=== PATIENT | female | born 1975 | race Caucasian/White ===

== ENCOUNTER 2016-06-15 08:21 | Day surgery (SDC) | payer BC, OTHER ==
[~2016-06-15] VITALS: Ht 160 cm; Wt 84.4 kg
[~2016-06-15 08:21] MED LIST: ALBUTEROL HFA60 DOSE IN; HYCET1 ML PO; OMEPRAZOLE40 MG PO; SUCRALFATE1 GM PO
[2016-06-15] MEDS ORDERED: HYCET1 ML PO (10:23)
--- NOTE | 2016-06-15 10:25 | Provider's Discharge Care Plan ---
Problem, Goal, Plan Problem List 1. S/P EXCISIOAL BX LIPOMA LEFT NECK
--- NOTE | 2016-06-15 10:25 | Provider's Discharge Care Plan ---
Problem, Goal, Plan Problem List 1. S/P EXCISIOAL BX LIPOMA LEFT NECK
--- NOTE | 2016-06-15 11:26 | OPERATIVE REPORT ---
DATE OF SURGERY: 06/15/2016 SURGEON: Duarte Salguero III, MD HEADER SET UP OPERATOR: None. PREOPERATIVE DIAGNOSES: 1. Lipoma, left neck POSTOPERATIVE DIAGNOSES: 1. Lipoma, left neck PROCEDURE PERFORMED: 1. Excisional biopsy of lipoma, left neck. ANESTHESIA: General Endotracheal. INDICATIONS: The patient is a 40-year-old female with a mass on the left side of her neck. Recent ultrasound shows that she has a 6 x 5 x 3 cm mass suggestive of lipoma, left anterolateral neck, uncomfortable whenever she rubs it. Always attributed it to migraines. SURGICAL FINDINGS: The patient had what appeared to be a subcutaneous lipoma extending beneath the lateral border of the sternocleidomastoid. It was not well- circumscribed and measuring only approximately 5 x perhaps 2 x 1 cm in size. SURGICAL TECHNIQUE: The patient was brought to the operating room and placed in the dorsal supine position where she was administered general endotracheal anesthesia by the anesthesiology department. After proper anesthesia had taken effect, the patient 's left neck was prepped using Betadine and draped in a sterile fashion. The site previously identified in the preoperative holding area was once again identified, infiltrated using local anesthetic. Transverse incision was made and carried down through skin and subcutaneous tissue. The palpable subcutaneous tissue was excised using sharp and blunt dissection. Palpation of the wound afterwards did not appreciate any further masses. Hemostasis having been achieved, the wound was irrigated and closed with 4-0 Polysorb continuous suture. Steri-Strips placed on the wound. A sterile pressure occlusive dressing was placed over the site. The patient tolerated the procedure well, was extubated and transferred to the recovery room in stable condition. There were no intraoperative or anesthetic complications.
[2016-06-15 12:28] VITALS: BP 122/75
== END 2016-06-15 12:35 | disposition home or self-care (01) ==
LOC: OR SRH 08:21 → SCU SRH 08:22 → OR SRH 09:00
PROVIDERS: Specialist
PROC: 0JB40ZX Excision of Right Neck Subcutaneous Tissue and Fascia, Open Approach, Diagnostic (ICD-10-PCS; principal; 2016-06-15 10:15)
DX: D17.0 Benign lipomatous neoplasm of skin and subcutaneous tissue of head, face and neck (principal); J45.909 Unspecified asthma, uncomplicated
CPT/HCPCS: 29229; 29240; 50004; 60001; 70002; 80102; 80212

== ENCOUNTER 2016-06-19 17:25 | Emergency (ER) | payer BC, OTHER ==
--- NOTE | 2016-06-19 19:12 | ED CLINICAL REPORT ---
Clinical Report - Physicians/Mid Levels [facility] [address] [place] [address] 06/19/2016 17:26 Patient: CYDNEY BENAVIDES Time Seen: 18:51; upon arrival, initial patient contact, initial documentation, patient care assumed. Arrived- By private vehicle. Historian- patient. HISTORY OF PRESENT ILLNESS Chief Complaint: SKIN RASH. This started about 3 - 4 days ago and is still present and worsening. It is described as itchy and burning. It has been located on the neck. A possible cause has been identified. (started near surgical site and steri strips, spreading up neck into jaw and chin and down chest). Similar symptoms previously: Once, milder. ( had abdominal surgery, and they did same thing with steri strips, and she had same type of rash). Recent medical care: The patient was seen recently in the office. ( had surgery on per Dr Hannon, had skin growth removed, and it was closed with steri strips, f/u appt sun, rash started sometime on sunday). REVIEW OF SYSTEMS No fever or difficulty breathing. All systems otherwise negative, except as recorded above. PAST HISTORY See nurses notes. PROBLEMS: Lymphadenitis. Hernia. Chest Pain of GI Origin. Gastroesophageal Reflux Disease. Abdominal Pain. --17:47 Debbie Malone R.N. ADDITIONAL SURGERIES: Foot. Hand. Roger Fundoplasty. Tubal Ligation. --17:47 Debbie Malone, R.N. Lymphoma removal. --17:48 Debbie Malone R.N. SOCIAL HISTORY Never smoker. Occasional alcohol use. No drug use. No recent travel. Is a local resident. FAMILY HISTORY Negative. ADDITIONAL NOTES The nursing notes have been reviewed with agreement regarding the chief complaint, HPI, ROS, PMH and patient medications and allergies. PHYSICAL EXAM Vital Signs: 06/19/2016 17:44 BP: 124/83. HR: 76. RR: 15. O2 saturation: 100%. Temp: 98.3 F. Pain level now: 7/10. Have been reviewed as normal and appear to be correct. Appearance: Alert. Oriented X3. No acute distress. Eyes: Pupils equal, round and reactive to light. Conjunctivae and eyelids normal. ENT: Nose normal. Neck: Neck supple. Respiratory: No respiratory distress. Skin: Skin warm and dry. Abnormal skin color. Rash present. Normal skin turgor. Moderate, well-demarcated, erythematous, macular, raised, weeping skin rash with an erythematous base on the face, neck and chest- steri strips removed, obvious epidermal stripping from bandage changes, surgical site clear, wound edges approximated well without any s/s of infection. Extremities: Normal external inspection. Extremities nontender. Neuro: Oriented X 3. No motor deficit. No sensory deficit. PROGRESS AND PROCEDURES Patient counseled in person regarding the patient's stable condition and diagnosis. Differential Diagnosis: Other possible considerations: allergic reaction, dermatitis, epidermal stripping, cellulitis, post op infection, shingles. Above considerations are based on history and physical exam. Differential diagnosis was discussed with patient. Disposition: Discharged home in good and improved condition (19:12). Condition: good and stable. CLINICAL IMPRESSION Moderate irritative contact dermatitis from adhesive. INSTRUCTIONS Warnings: GENERAL WARNINGS: Return or contact your physician immediately if your condition worsens or changes unexpectedly, if not improving as expected, or if other problems arise. Specifically return if problem worsens. Prescription Medications: Bella 180 mg tablets: take 1 orally daily for 10 days. Dispense ten (10). No refills. Prednisone 20 mg: take 3 orally every day for 5 days. Dispense fifteen (15). No refills. Keflex 500 mg: take 1 capsule orally every 12 hours for 10 days. No refill. Pepcid 40 mg RPD: take 1 orally at bedtime for 10 days. Dispense ten (10). No refills. Understanding of the discharge instructions verbalized by patient. Follow-up with: Dimas Salguero MD, General Surgeon, , [facility], [address] [place] [address] Follow up in two days as scheduled even if well. Summary of care provided to patient. (Electronically signed by Lakia Ellis A.R.N.P. 06/19/2016 22:17)
--- NOTE | 2016-06-19 19:12 | ED NURSING NOTES ---
Clinical Report - Nurses [facility] [address] [place] [address] 06/19/2016 17:26 Patient: CYDNEY BENAVIDES TRIAGE Triage time 17:45. Acuity: LEVEL 4. Chief Complaint: SKIN RASH. 17:50 06/19/16. Alert. No acute distress. SEPSIS SCREEN: Sepsis Screen. Negative (no infection suspected/documented). MICHELET COMA SCORE: Michelet Coma Scale: 15- eyes open spontaneously (4); best verbal response- oriented x 4 (5); best motor response- obeys commands (6). --17:50 Debbie Malone R.N. 17:44 06/19/16. BP: 124/83. HR: 76. RR: 15. O2 saturation: 100%. Temp: 98.3 F. Pain level now: 10/09. --17:50 Debbie Malone R.N. Weight: 81.6 kg. Height/Length: 63 inches. BMI: 31.9. --17:50 Debbie Malone R.N. Medications Albuterol Sulfate Inhalation, as needed. --17:47 Debbie Malone R.N. Allergies Sulfa Antibiotics. --17:47 Debbie Malone R.N. History Arrived by private vehicle. Historian: patient. Primary physician (Dr. Genao). Reported as located on the neck. Onset. (Sunday). It is described as itchy and burning. ( pt had lymphoma removal surgery on L side of neck on .). She has had muscle aches. No difficulty breathing or weakness. Treatment [employer]: Took ibuprofen. PAST MEDICAL HX: Immunizations: up-to-date. Last normal menstrual period- 8 years ago. Denies current . SOCIAL HX: Never smoker. Occasional alcohol use. No drug use. FALL RISK ASSESSMENT: Fall risk assessment completed. No fall risk identified. NUTRITIONAL RISK ASSESSMENT: The nutritional risk assessment revealed no deficiencies. FUNCTIONAL ASSESSMENT: Functional assessment: no impairments noted. LEARNING NEEDS ASSESSMENT: The learning needs assessment revealed no barriers. SKIN INTEGRITY ASSESSMENT: Skin integrity risk assessment completed. No skin integrity risk identified. --17:50 Debbie Malone R.N. PROBLEMS: Lymphadenitis. Hernia. Chest Pain of GI Origin. Gastroesophageal Reflux Disease. Abdominal Pain. --17:47 Debbie Malone R.N. ADDITIONAL SURGERIES: Foot. Hand. Roger Fundoplasty. Tubal Ligation. --17:47 Debbie Malone R.N. Lymphoma removal. --17:48 Debbie Malone R.N. Interventions ID band on patient. To treatment room. --17:50 Debbie Malone R.N. PHYSICAL ASSESSMENT 17:54 06/19/16. Ambulatory to room. GENERAL / NEURO / PSYCH: Alert. The patient does not appear to be in acute distress. Oriented X 4. HEENT: Mucous membranes are pink. RESPIRATORY: Respirations not labored. CVS: Capillary refill less than 2 seconds. Pulses within normal limits. SKIN: Skin is intact, warm and dry. Well-demarcated, erythematous, tender, warm, blanching skin rash on the neck- pt states she has had this rash before, after a prior surgery. pt reports a possible allergy to the tape used on the surgical incision. pt states she came in today "because I can't sleep and it's much worse than last time.". No crusting skin rash. --17:54 Debbie Malone R.N. NURSING PROGRESS NOTES 17:55 06/19/16. Two patient identifiers checked. Call light placed in reach. Side rails up x 1. Bed placed in lowest position. Brakes of bed on. Patient ready for evaluation- chart flagged and notification provided. --17:55 Debbie Malone R.N. 18:47 06/19/16. Patient informed about reason for wait and about plan of care. --18:47 Debbie Malone R.N. 18:53 06/19/16. ( VLADIMIR Dorman at bedside.). --18:53 Debbie Malone R.N. 19:11 06/19/16. Care transferred and report given (to LINDSAY Barron). --19:11 Debbie Malone R.N. Care transferred and report received. --19:11 Beatrice Ibarra R.N. 19:16 06/19/2016 Pepcid (Famotidine) PO Tablets 40 mg given. Allergies verified and confirmed 5 rights. --19:17 Beatrice Ibarra R.N. 19:16 06/19/2016 Prednisone PO Tablets 60 mg given. Allergies verified and confirmed 5 rights. --19:17 Beatrice Ibarra R.N. Applied clean bulky dressing consisting of 4x4 gauze. Secured with kerlix. --19:49 Mishel Barnes. DISPOSITION / DISCHARGE 20:00. Condition at departure: improved and stable. No learning barriers present. Discharge instructions provided and reviewed with the patient. Reviewed medication(s) side effects, precautions, dosing and course information. Prescription(s) given to the patient. Patient verbalized understanding. Written instructions provided in Frisian. The patient was discharged home. She left the Emergency Department ambulatory and via private vehicle. Patient driving. --21:00 Beatrice Ibarra R.N. 20:00 06/19/16. BP: 121/84. HR: 73. RR: 15. O2 saturation: 98% on room air. Temp: deferred. Huerta-Lopez pain scale: 2/10. --21:00 Baetrice Ibarra R.N. Locked/Released at 06/19/2016 21:00 by Beatrice Ibarra R.N.
--- NOTE | 2016-06-19 19:12 | ED ORDER SUMMARY ---
..... Patient: CYDNEY BENAVIDES OrderSheet [facility] VisitID: [id number] [address] [place] [address] 40y, F Registration Date/Time: 06/19/2016 ORDER SHEET Weight: 81.6 kg Allergies: Sulfa Antibiotics GENERAL ORDERS: Dress Wounds (wrap kerlix around neck and cover wound, NO tape) (19:13 06/19/2016 HBivens A.R.N.P.) (19:54 LMuller) MEDICATION ORDERS: Benadryl PO 50 mg (NOW) (19:10 06/19/2016 HBivens A.R.N.P.) (Ack 19:12 RCollier R.N.) (Cancelled: Patient Refusal- will take own medication at home19:19 RCollier R.N.) Pepcid PO 40 mg (NOW) (19:10 06/19/2016 HBivens A.R.N.P.) (Ack 19:12 RCollier R.N.) (19:17 RCollier R.N.) Prednisone PO 60 mg (NOW) (19:11 06/19/2016 HBivens A.R.N.P.) (Ack 19:12 RCollier R.N.) (19:17 RCollier R.N.) IV FLUIDS: ORDER SHEET NOTES: [Electronically signed by Beatrice Ibarra R.N. (21:00 06/19/2016)] [Electronically signed by Lakia Ellis A.R.N.P. (22:17 06/19/2016)] [Electronically locked/signed by Beatrice Ibarra R.N. (21:00 06/19/2016)]
--- NOTE | 2016-06-19 19:12 | ED CLINICAL REPORT ---
Clinical Report - Physicians/Mid Levels [facility] [address] [place] [address] 06/19/2016 17:26 Patient: CYDNEY BENAVIDES Time Seen: 18:51; upon arrival, initial patient contact, initial documentation, patient care assumed. Arrived- By private vehicle. Historian- patient. HISTORY OF PRESENT ILLNESS Chief Complaint: SKIN RASH. This started about 3 - 4 days ago and is still present and worsening. It is described as itchy and burning. It has been located on the neck. A possible cause has been identified. (started near surgical site and steri strips, spreading up neck into jaw and chin and down chest). Similar symptoms previously: Once, milder. ( had abdominal surgery, and they did same thing with steri strips, and she had same type of rash). Recent medical care: The patient was seen recently in the office. ( had surgery on per Dr Hannon, had skin growth removed, and it was closed with steri strips, f/u appt sun, rash started sometime on sunday). REVIEW OF SYSTEMS No fever or difficulty breathing. All systems otherwise negative, except as recorded above. PAST HISTORY See nurses notes. PROBLEMS: Lymphadenitis. Hernia. Chest Pain of GI Origin. Gastroesophageal Reflux Disease. Abdominal Pain. --17:47 Debbie Malone R.N. ADDITIONAL SURGERIES: Foot. Hand. Roger Fundoplasty. Tubal Ligation. --17:47 Debbie Malone, R.N. Lymphoma removal. --17:48 Debbie Malone R.N. SOCIAL HISTORY Never smoker. Occasional alcohol use. No drug use. No recent travel. Is a local resident. FAMILY HISTORY Negative. ADDITIONAL NOTES The nursing notes have been reviewed with agreement regarding the chief complaint, HPI, ROS, PMH and patient medications and allergies. PHYSICAL EXAM Vital Signs: 06/19/2016 17:44 BP: 124/83. HR: 76. RR: 15. O2 saturation: 100%. Temp: 98.3 F. Pain level now: 7/10. Have been reviewed as normal and appear to be correct. Appearance: Alert. Oriented X3. No acute distress. Eyes: Pupils equal, round and reactive to light. Conjunctivae and eyelids normal. ENT: Nose normal. Neck: Neck supple. Respiratory: No respiratory distress. Skin: Skin warm and dry. Abnormal skin color. Rash present. Normal skin turgor. Moderate, well-demarcated, erythematous, macular, raised, weeping skin rash with an erythematous base on the face, neck and chest- steri strips removed, obvious epidermal stripping from bandage changes, surgical site clear, wound edges approximated well without any s/s of infection. Extremities: Normal external inspection. Extremities nontender. Neuro: Oriented X 3. No motor deficit. No sensory deficit. PROGRESS AND PROCEDURES Patient counseled in person regarding the patient's stable condition and diagnosis. Differential Diagnosis: Other possible considerations: allergic reaction, dermatitis, epidermal stripping, cellulitis, post op infection, shingles. Above considerations are based on history and physical exam. Differential diagnosis was discussed with patient. Disposition: Discharged home in good and improved condition (19:12). Condition: good and stable. CLINICAL IMPRESSION Moderate irritative contact dermatitis from adhesive. INSTRUCTIONS Warnings: GENERAL WARNINGS: Return or contact your physician immediately if your condition worsens or changes unexpectedly, if not improving as expected, or if other problems arise. Specifically return if problem worsens. Prescription Medications: Bella 180 mg tablets: take 1 orally daily for 10 days. Dispense ten (10). No refills. Prednisone 20 mg: take 3 orally every day for 5 days. Dispense fifteen (15). No refills. Keflex 500 mg: take 1 capsule orally every 12 hours for 10 days. No refill. Pepcid 40 mg RPD: take 1 orally at bedtime for 10 days. Dispense ten (10). No refills. Understanding of the discharge instructions verbalized by patient. Follow-up with: Dimas Salguero MD, General Surgeon, , [facility], [address] [place] [address] Follow up in two days as scheduled even if well. Summary of care provided to patient. (Electronically signed by Lakia Ellis A.R.N.P. 06/19/2016 22:17)
--- NOTE | 2016-06-19 19:12 | ED ORDER SUMMARY ---
..... Patient: CYDNEY BENAVIDES OrderSheet [facility] VisitID: [id number] [address] [place] [address] 40y, F Registration Date/Time: 06/19/2016 ORDER SHEET Weight: 81.6 kg Allergies: Sulfa Antibiotics GENERAL ORDERS: Dress Wounds (wrap kerlix around neck and cover wound, NO tape) (19:13 06/19/2016 HBivens A.R.N.P.) (19:54 LMuller) MEDICATION ORDERS: Benadryl PO 50 mg (NOW) (19:10 06/19/2016 HBivens A.R.N.P.) (Ack 19:12 RCollier R.N.) (Cancelled: Patient Refusal- will take own medication at home19:19 RCollier R.N.) Pepcid PO 40 mg (NOW) (19:10 06/19/2016 HBivens A.R.N.P.) (Ack 19:12 RCollier R.N.) (19:17 RCollier R.N.) Prednisone PO 60 mg (NOW) (19:11 06/19/2016 HBivens A.R.N.P.) (Ack 19:12 RCollier R.N.) (19:17 RCollier R.N.) IV FLUIDS: ORDER SHEET NOTES: [Electronically signed by Beatrice Ibarra R.N. (21:00 06/19/2016)] [Electronically signed by Lakia Ellis A.R.N.P. (22:17 06/19/2016)] [Electronically locked/signed by Beatrice Ibarra R.N. (21:00 06/19/2016)]
--- NOTE | 2016-06-19 22:17 | ED MAR SUMMARY ---
..... Medication Administration Record [facility] [address] [place] [address] Patient: CYDNEY BENAVIDES Visit ID: [id number] 40y, F Weight: 81.6 kg Height/Length: 63 in BMI: 31.9 ALLERGIES: Sulfa Antibiotics Given 19:06/19/2016 Beatrice Ibarra, R.N. Medication Administered: PEPCID [PO] (FAMOTIDINE), Dose: 40 mg Tablets PO. Medication Ordered: Pepcid PO 40 mg (NOW). Given 19:06/19/2016 Beatrice Ibarra, R.N. Medication Administered: PREDNISONE [PO], Dose: 60 mg Tablets PO. Medication Ordered: Prednisone PO 60 mg (NOW).
--- NOTE | 2016-06-19 22:17 | ED DISCHARGE INSTRUCTIONS ---
Patient: CYDNEY BENAVIDES General Instructions [facility] VisitID: [id number] [place] [address] 40y, F Registration Date/Time: 06/19/2016 Moderate irritative contact dermatitis from adhesive. INSTRUCTIONS Warnings: GENERAL WARNINGS: Return or contact your physician immediately if your condition worsens or changes unexpectedly, if not improving as expected, or if other problems arise. Specifically return if problem worsens. Prescription Medications: Bella 180 mg tablets: take 1 orally daily for 10 days. Dispense ten (10). No refills. Prednisone 20 mg: take 3 orally every day for 5 days. Dispense fifteen (15). No refills. Keflex 500 mg: take 1 capsule orally every 12 hours for 10 days. No refill. Pepcid 40 mg RPD: take 1 orally at bedtime for 10 days. Dispense ten (10). No refills. Understanding of the discharge instructions verbalized by patient. Follow-up with: Dimas Salguero MD, General Surgeon, , [facility], [address] [place] [address] Follow up in two days as scheduled even if well. Summary of care provided to patient. ADDITIONAL INFORMATION Dermatitis (Non-Specific) Dermatitis is an inflammation of the skin. The exact cause of your rash is not certain. However, this rash does not appear to be an infection or contagious illness. Taking care of the rash at home should help relieve your symptoms. Home Care: Keep the areas of rash clean by washing it daily. This also helps to keep the skin moist. Use a neutral pH soap such as Dove or Lever 2000. Apply a moisturizing lotion after bathing to prevent dry skin. Avoid skin irritants (wool or silk clothing, grease, oils, some medicines, harsh soaps, and detergents). Wear absorbent, soft fabrics next to the skin rather than rough or scratchy materials. Unless another medicine was prescribed, you may use Hydrocortisone cream (which you can get without a prescription) to reduce the inflammation. Follow Up: Make an appointment with your doctor in the next 1 to 2 weeks if your symptoms do not improve with the above measures. Get Prompt Medical Attention if any of the following occur: Increasing area of redness or pain in the skin Yellow crusts or drainage from the rash Joint pain New rash that appears in other areas of the body Fever of 100.4F (38C) or higher, or as directed by your healthcare provider Fexofenadine Hydrochloride Oral tablet What is this medicine? FEXOFENADINE (fex oh FEN a justina) is an antihistamine. This medicine is used to treat or prevent symptoms of allergies. It is also used to help reduce itchy skin rash and hives. How should I use this medicine? Take this medicine by mouth with a full glass of water. Follow the directions on the prescription label. You may take this medicine with food or on an empty stomach. Take your medicine at regular intervals. Do not take it more often than directed. You may need to take this medicine for several days before your symptoms improve. Talk to your analysis consultant regarding the use of this medicine in children. While this drug may be prescribed for children as young as 6 years old for selected conditions, precautions do apply. What side effects may I notice from receiving this medicine? Side effects that you should report to your doctor or health rn care manager as soon as possible: allergic reactions like skin rash, itching or hives, swelling of the face, lips, or tongue breathing problems chest pain fast heartbeat infection or fever Side effects that usually do not require medical attention (report to your doctor or health rn care manager if they continue or are bothersome): cough drowsiness dry or irritated nose, mouth, or throat headache menstrual changes pain stomach upset, nausea What may interact with this medicine? antacids erythromycin grapefruit, apple, or orange juice ketoconazole magnesium-containing products What if I miss a dose? If you miss a dose, take it as soon as you can. If it is almost time for your next dose, take only that dose. Do not take double or extra doses. Where should I keep my medicine? Keep out of the reach of children. Store at room temperature between 20 and 25 degrees C (68 and 77degrees F). Protect from moisture. Throw away any unused medicine after the expiration date. What should I tell my health care provider before I take this medicine? They need to know if you have any of these conditions: kidney disease an unusual or allergic reaction to fexofenadine, terfenadine, other medicines, foods, dyes, or preservatives or trying to get breast-feeding What should I watch for while using this medicine? Visit your doctor or health rn care manager for regular checks on your health. Tell your doctor or healthcare professional if your symptoms do not start to get better or if they get worse. Prednisone Oral tablet What is this medicine? PREDNISONE (PRED ni sone) is a corticosteroid. It is commonly used to treat inflammation of the skin, joints, lungs, and other organs. Common conditions treated include asthma, allergies, and arthritis. It is also used for other conditions, such as blood disorders and diseases of the adrenal glands. How should I use this medicine? Take this medicine by mouth with a glass of water. Follow the directions on the prescription label. Take this medicine with food. If you are taking this medicine once a day, take it in the morning. Do not take more medicine than you are told to take. Do not suddenly stop taking your medicine because you may develop a severe reaction. Your doctor will tell you how much medicine to take. If your doctor wants you to stop the medicine, the dose may be slowly lowered over time to avoid any side effects. Talk to your analysis consultant regarding the use of this medicine in children. Special care may be needed. What side effects may I notice from receiving this medicine? Side effects that you should report to your doctor or health rn care manager as soon as possible: allergic reactions like skin rash, itching or hives, swelling of the face, lips, or tongue changes in emotions or moods changes in vision depressed mood eye pain fever or chills, cough, sore throat, pain or difficulty passing urine increased thirst swelling of ankles, feet Side effects that usually do not require medical attention (report to your doctor or health rn care manager if they continue or are bothersome): confusion, excitement, restlessness headache nausea, vomiting skin problems, acne, thin and shiny skin trouble sleeping weight gain What may interact with this medicine? Do not take this medicine with any of the following medications: metyrapone mifepristone This medicine may also interact with the following medications: aminoglutethimide amphotericin B aspirin and aspirin-like medicines barbiturates certain medicines for diabetes, like glipizide or glyburide cholestyramine cholinesterase inhibitors cyclosporine digoxin diuretics ephedrine female hormones, like estrogens and control pills isoniazid ketoconazole NSAIDS, medicines for pain and inflammation, like ibuprofen or naproxen phenytoin rifampin toxoids vaccines warfarin What if I miss a dose? If you miss a dose, take it as soon as you can. If it is almost time for your next dose, talk to your doctor or health rn care manager. You may need to miss a dose or take an extra dose. Do not take double or extra doses without advice. Where should I keep my medicine? Keep out of the reach of children. Store at room temperature between 15 and 30 degrees C (59 and 86 degrees F). Protect from light. Keep container tightly closed. Throw away any unused medicine after the expiration date. What should I tell my health care provider before I take this medicine? They need to know if you have any of these conditions: Nneka's syndrome diabetes glaucoma heart disease high blood pressure infection (especially a virus infection such as chickenpox, cold sores, or herpes) kidney disease liver disease mental illness myasthenia gravis osteoporosis seizures stomach or intestine problems thyroid disease an unusual or allergic reaction to lactose, prednisone, other medicines, foods, dyes, or preservatives or trying to get breast-feeding What should I watch for while using this medicine? Visit your doctor or health rn care manager for regular checks on your progress. If you are taking this medicine over a prolonged period, carry an identification card with your name and address, the type and dose of your medicine, and your doctor's name and address. This medicine may increase your risk of getting an infection. Tell your doctor or health rn care manager if you are around anyone with measles or chickenpox, or if you develop sores or blisters that do not heal properly. If you are going to have surgery, tell your doctor or health rn care manager that you have taken this medicine within the last twelve months. Ask your doctor or health rn care manager about your diet. You may need to lower the amount of salt you eat. This medicine may affect blood sugar levels. If you have diabetes, check with your doctor or health rn care manager before you change your diet or the dose of your diabetic medicine. Cephalexin Monohydrate Oral tablet What is this medicine? CEPHALEXIN (sef a LAURIE in) is a cephalosporin antibiotic. It is used to treat certain kinds of bacterial infections It will not work for colds, flu, or other viral infections. How should I use this medicine? Take this medicine by mouth with a full glass of water. Follow the directions on the prescription label. This medicine can be taken with or without food. Take your medicine at regular intervals. Do not take your medicine more often than directed. Take all of your medicine as directed even if you think you are better. Do not skip doses or stop your medicine early. Talk to your analysis consultant regarding the use of this medicine in children. While this drug may be prescribed for selected conditions, precautions do apply. What side effects may I notice from receiving this medicine? Side effects that you should report to your doctor or health rn care manager as soon as possible: allergic reactions like skin rash, itching or hives, swelling of the face, lips, or tongue breathing problems pain or trouble passing urine redness, blistering, peeling or loosening of the skin, including inside the mouth severe or watery diarrhea unusually weak or tired yellowing of the eyes, skin Side effects that usually do not require medical attention (report to your doctor or health rn care manager if they continue or are bothersome): gas or heartburn genital or anal irritation headache joint or muscle pain nausea, vomiting What may interact with this medicine? probenecid some other antibiotics What if I miss a dose? If you miss a dose, take it as soon as you can. If it is almost time for your next dose, take only that dose. Do not take double or extra doses. There should be at least 4 to 6 hours between doses. Where should I keep my medicine? Keep out of the reach of children. Store at room temperature between 59 and 86 degrees F (15 and 30 degrees C). Throw away any unused medicine after the expiration date. What should I tell my health care provider before I take this medicine? They need to know if you have any of these conditions: kidney disease stomach or intestine problems, especially colitis an unusual or allergic reaction to cephalexin, other cephalosporins, penicillins, other antibiotics, medicines, foods, dyes or preservatives or trying to get breast-feeding What should I watch for while using this medicine? Tell your doctor or health rn care manager if your symptoms do not begin to improve in a few days. Do not treat diarrhea with over the counter products. Contact your doctor if you have diarrhea that lasts more than 2 days or if it is severe and watery. If you have diabetes, you may get a false-positive result for sugar in your urine. Check with your doctor or health rn care manager. Famotidine Oral tablet What is this medicine? FAMOTIDINE (hunter patinoen) is a type of antihistamine that blocks the release of stomach acid. It is used to treat stomach or intestinal ulcers. It can also relieve heartburn from acid reflux. How should I use this medicine? Take this medicine by mouth with a glass of water. Follow the directions on the prescription label. If you only take this medicine once a day, take it at bedtime. Take your doses at regular intervals. Do not take your medicine more often than directed. Talk to your analysis consultant regarding the use of this medicine in children. Special care may be needed. What side effects may I notice from receiving this medicine? Side effects that you should report to your doctor or health rn care manager as soon as possible: agitation, nervousness confusion hallucinations skin rash, itching Side effects that usually do not require medical attention (report to your doctor or health rn care manager if they continue or are bothersome): constipation diarrhea dizziness headache What may interact with this medicine? delavirdine itraconazole ketoconazole What if I miss a dose? If you miss a dose, take it as soon as you can. If it is almost time for your next dose, take only that dose. Do not take double or extra doses. Where should I keep my medicine? Keep out of the reach of children. Store at room temperature between 15 and 30 degrees C (59 and 86 degrees F). Do not freeze. Throw away any unused medicine after the expiration date. What should I tell my health care provider before I take this medicine? They need to know if you have any of these conditions: kidney or liver disease trouble swallowing an unusual or allergic reaction to famotidine, other medicines, foods, dyes, or preservatives or trying to get breast-feeding What should I watch for while using this medicine? Tell your doctor or health rn care manager if your condition does not start to get better or if it gets worse. Finish the full course of tablets prescribed, even if you feel better. Do not take with aspirin, ibuprofen or other antiinflammatory medicines. These can make your condition worse. Do not smoke cigarettes or drink alcohol. These cause irritation in your stomach and can increase the time it will take for ulcers to heal. If you get black, tarry stools or vomit up what looks like coffee grounds, call your doctor or health rn care manager at once. You may have a bleeding ulcer. You have been given the following additional information: Dermatitis, Non-Specific Fexofenadine Hydrochloride Oral tablet Prednisone Oral tablet Cephalexin Monohydrate Oral tablet Famotidine Oral tablet (Electronically signed by Lakia Ellis A.R.N.P. 06/19/2016 22:17)
--- NOTE | 2016-06-19 22:17 | ED MAR SUMMARY ---
..... Medication Administration Record [facility] [address] [place] [address] Patient: CYDNEY BENAVIDES Visit ID: [id number] 40y, F Weight: 81.6 kg Height/Length: 63 in BMI: 31.9 ALLERGIES: Sulfa Antibiotics Given 19:06/19/2016 Beatrice Ibarra, R.N. Medication Administered: PEPCID [PO] (FAMOTIDINE), Dose: 40 mg Tablets PO. Medication Ordered: Pepcid PO 40 mg (NOW). Given 19:06/19/2016 Beatrice Ibarra, R.N. Medication Administered: PREDNISONE [PO], Dose: 60 mg Tablets PO. Medication Ordered: Prednisone PO 60 mg (NOW).
--- NOTE | 2016-06-19 22:17 | ED DISCHARGE INSTRUCTIONS ---
Patient: CYDNEY BENAVIDES General Instructions [facility] VisitID: [id number] [place] [address] 40y, F Registration Date/Time: 06/19/2016 Moderate irritative contact dermatitis from adhesive. INSTRUCTIONS Warnings: GENERAL WARNINGS: Return or contact your physician immediately if your condition worsens or changes unexpectedly, if not improving as expected, or if other problems arise. Specifically return if problem worsens. Prescription Medications: Bella 180 mg tablets: take 1 orally daily for 10 days. Dispense ten (10). No refills. Prednisone 20 mg: take 3 orally every day for 5 days. Dispense fifteen (15). No refills. Keflex 500 mg: take 1 capsule orally every 12 hours for 10 days. No refill. Pepcid 40 mg RPD: take 1 orally at bedtime for 10 days. Dispense ten (10). No refills. Understanding of the discharge instructions verbalized by patient. Follow-up with: Dimas Salguero MD, General Surgeon, , [facility], [address] [place] [address] Follow up in two days as scheduled even if well. Summary of care provided to patient. ADDITIONAL INFORMATION Dermatitis (Non-Specific) Dermatitis is an inflammation of the skin. The exact cause of your rash is not certain. However, this rash does not appear to be an infection or contagious illness. Taking care of the rash at home should help relieve your symptoms. Home Care: Keep the areas of rash clean by washing it daily. This also helps to keep the skin moist. Use a neutral pH soap such as Dove or Lever 2000. Apply a moisturizing lotion after bathing to prevent dry skin. Avoid skin irritants (wool or silk clothing, grease, oils, some medicines, harsh soaps, and detergents). Wear absorbent, soft fabrics next to the skin rather than rough or scratchy materials. Unless another medicine was prescribed, you may use Hydrocortisone cream (which you can get without a prescription) to reduce the inflammation. Follow Up: Make an appointment with your doctor in the next 1 to 2 weeks if your symptoms do not improve with the above measures. Get Prompt Medical Attention if any of the following occur: Increasing area of redness or pain in the skin Yellow crusts or drainage from the rash Joint pain New rash that appears in other areas of the body Fever of 100.4F (38C) or higher, or as directed by your healthcare provider Fexofenadine Hydrochloride Oral tablet What is this medicine? FEXOFENADINE (fex oh FEN a justina) is an antihistamine. This medicine is used to treat or prevent symptoms of allergies. It is also used to help reduce itchy skin rash and hives. How should I use this medicine? Take this medicine by mouth with a full glass of water. Follow the directions on the prescription label. You may take this medicine with food or on an empty stomach. Take your medicine at regular intervals. Do not take it more often than directed. You may need to take this medicine for several days before your symptoms improve. Talk to your stereoptic projection topographer regarding the use of this medicine in children. While this drug may be prescribed for children as young as 6 years old for selected conditions, precautions do apply. What side effects may I notice from receiving this medicine? Side effects that you should report to your doctor or health healthcare risk control consultant as soon as possible: allergic reactions like skin rash, itching or hives, swelling of the face, lips, or tongue breathing problems chest pain fast heartbeat infection or fever Side effects that usually do not require medical attention (report to your doctor or health healthcare risk control consultant if they continue or are bothersome): cough drowsiness dry or irritated nose, mouth, or throat headache menstrual changes pain stomach upset, nausea What may interact with this medicine? antacids erythromycin grapefruit, apple, or orange juice ketoconazole magnesium-containing products What if I miss a dose? If you miss a dose, take it as soon as you can. If it is almost time for your next dose, take only that dose. Do not take double or extra doses. Where should I keep my medicine? Keep out of the reach of children. Store at room temperature between 20 and 25 degrees C (68 and 77degrees F). Protect from moisture. Throw away any unused medicine after the expiration date. What should I tell my health care provider before I take this medicine? They need to know if you have any of these conditions: kidney disease an unusual or allergic reaction to fexofenadine, terfenadine, other medicines, foods, dyes, or preservatives or trying to get breast-feeding What should I watch for while using this medicine? Visit your doctor or health healthcare risk control consultant for regular checks on your health. Tell your doctor or healthcare professional if your symptoms do not start to get better or if they get worse. Prednisone Oral tablet What is this medicine? PREDNISONE (PRED ni sone) is a corticosteroid. It is commonly used to treat inflammation of the skin, joints, lungs, and other organs. Common conditions treated include asthma, allergies, and arthritis. It is also used for other conditions, such as blood disorders and diseases of the adrenal glands. How should I use this medicine? Take this medicine by mouth with a glass of water. Follow the directions on the prescription label. Take this medicine with food. If you are taking this medicine once a day, take it in the morning. Do not take more medicine than you are told to take. Do not suddenly stop taking your medicine because you may develop a severe reaction. Your doctor will tell you how much medicine to take. If your doctor wants you to stop the medicine, the dose may be slowly lowered over time to avoid any side effects. Talk to your stereoptic projection topographer regarding the use of this medicine in children. Special care may be needed. What side effects may I notice from receiving this medicine? Side effects that you should report to your doctor or health healthcare risk control consultant as soon as possible: allergic reactions like skin rash, itching or hives, swelling of the face, lips, or tongue changes in emotions or moods changes in vision depressed mood eye pain fever or chills, cough, sore throat, pain or difficulty passing urine increased thirst swelling of ankles, feet Side effects that usually do not require medical attention (report to your doctor or health healthcare risk control consultant if they continue or are bothersome): confusion, excitement, restlessness headache nausea, vomiting skin problems, acne, thin and shiny skin trouble sleeping weight gain What may interact with this medicine? Do not take this medicine with any of the following medications: metyrapone mifepristone This medicine may also interact with the following medications: aminoglutethimide amphotericin B aspirin and aspirin-like medicines barbiturates certain medicines for diabetes, like glipizide or glyburide cholestyramine cholinesterase inhibitors cyclosporine digoxin diuretics ephedrine female hormones, like estrogens and control pills isoniazid ketoconazole NSAIDS, medicines for pain and inflammation, like ibuprofen or naproxen phenytoin rifampin toxoids vaccines warfarin What if I miss a dose? If you miss a dose, take it as soon as you can. If it is almost time for your next dose, talk to your doctor or health healthcare risk control consultant. You may need to miss a dose or take an extra dose. Do not take double or extra doses without advice. Where should I keep my medicine? Keep out of the reach of children. Store at room temperature between 15 and 30 degrees C (59 and 86 degrees F). Protect from light. Keep container tightly closed. Throw away any unused medicine after the expiration date. What should I tell my health care provider before I take this medicine? They need to know if you have any of these conditions: Nneka's syndrome diabetes glaucoma heart disease high blood pressure infection (especially a virus infection such as chickenpox, cold sores, or herpes) kidney disease liver disease mental illness myasthenia gravis osteoporosis seizures stomach or intestine problems thyroid disease an unusual or allergic reaction to lactose, prednisone, other medicines, foods, dyes, or preservatives or trying to get breast-feeding What should I watch for while using this medicine? Visit your doctor or health healthcare risk control consultant for regular checks on your progress. If you are taking this medicine over a prolonged period, carry an identification card with your name and address, the type and dose of your medicine, and your doctor's name and address. This medicine may increase your risk of getting an infection. Tell your doctor or health healthcare risk control consultant if you are around anyone with measles or chickenpox, or if you develop sores or blisters that do not heal properly. If you are going to have surgery, tell your doctor or health healthcare risk control consultant that you have taken this medicine within the last twelve months. Ask your doctor or health healthcare risk control consultant about your diet. You may need to lower the amount of salt you eat. This medicine may affect blood sugar levels. If you have diabetes, check with your doctor or health healthcare risk control consultant before you change your diet or the dose of your diabetic medicine. Cephalexin Monohydrate Oral tablet What is this medicine? CEPHALEXIN (sef a LAURIE in) is a cephalosporin antibiotic. It is used to treat certain kinds of bacterial infections It will not work for colds, flu, or other viral infections. How should I use this medicine? Take this medicine by mouth with a full glass of water. Follow the directions on the prescription label. This medicine can be taken with or without food. Take your medicine at regular intervals. Do not take your medicine more often than directed. Take all of your medicine as directed even if you think you are better. Do not skip doses or stop your medicine early. Talk to your stereoptic projection topographer regarding the use of this medicine in children. While this drug may be prescribed for selected conditions, precautions do apply. What side effects may I notice from receiving this medicine? Side effects that you should report to your doctor or health healthcare risk control consultant as soon as possible: allergic reactions like skin rash, itching or hives, swelling of the face, lips, or tongue breathing problems pain or trouble passing urine redness, blistering, peeling or loosening of the skin, including inside the mouth severe or watery diarrhea unusually weak or tired yellowing of the eyes, skin Side effects that usually do not require medical attention (report to your doctor or health healthcare risk control consultant if they continue or are bothersome): gas or heartburn genital or anal irritation headache joint or muscle pain nausea, vomiting What may interact with this medicine? probenecid some other antibiotics What if I miss a dose? If you miss a dose, take it as soon as you can. If it is almost time for your next dose, take only that dose. Do not take double or extra doses. There should be at least 4 to 6 hours between doses. Where should I keep my medicine? Keep out of the reach of children. Store at room temperature between 59 and 86 degrees F (15 and 30 degrees C). Throw away any unused medicine after the expiration date. What should I tell my health care provider before I take this medicine? They need to know if you have any of these conditions: kidney disease stomach or intestine problems, especially colitis an unusual or allergic reaction to cephalexin, other cephalosporins, penicillins, other antibiotics, medicines, foods, dyes or preservatives or trying to get breast-feeding What should I watch for while using this medicine? Tell your doctor or health healthcare risk control consultant if your symptoms do not begin to improve in a few days. Do not treat diarrhea with over the counter products. Contact your doctor if you have diarrhea that lasts more than 2 days or if it is severe and watery. If you have diabetes, you may get a false-positive result for sugar in your urine. Check with your doctor or health healthcare risk control consultant. Famotidine Oral tablet What is this medicine? FAMOTIDINE (hunter patinoen) is a type of antihistamine that blocks the release of stomach acid. It is used to treat stomach or intestinal ulcers. It can also relieve heartburn from acid reflux. How should I use this medicine? Take this medicine by mouth with a glass of water. Follow the directions on the prescription label. If you only take this medicine once a day, take it at bedtime. Take your doses at regular intervals. Do not take your medicine more often than directed. Talk to your stereoptic projection topographer regarding the use of this medicine in children. Special care may be needed. What side effects may I notice from receiving this medicine? Side effects that you should report to your doctor or health healthcare risk control consultant as soon as possible: agitation, nervousness confusion hallucinations skin rash, itching Side effects that usually do not require medical attention (report to your doctor or health healthcare risk control consultant if they continue or are bothersome): constipation diarrhea dizziness headache What may interact with this medicine? delavirdine itraconazole ketoconazole What if I miss a dose? If you miss a dose, take it as soon as you can. If it is almost time for your next dose, take only that dose. Do not take double or extra doses. Where should I keep my medicine? Keep out of the reach of children. Store at room temperature between 15 and 30 degrees C (59 and 86 degrees F). Do not freeze. Throw away any unused medicine after the expiration date. What should I tell my health care provider before I take this medicine? They need to know if you have any of these conditions: kidney or liver disease trouble swallowing an unusual or allergic reaction to famotidine, other medicines, foods, dyes, or preservatives or trying to get breast-feeding What should I watch for while using this medicine? Tell your doctor or health healthcare risk control consultant if your condition does not start to get better or if it gets worse. Finish the full course of tablets prescribed, even if you feel better. Do not take with aspirin, ibuprofen or other antiinflammatory medicines. These can make your condition worse. Do not smoke cigarettes or drink alcohol. These cause irritation in your stomach and can increase the time it will take for ulcers to heal. If you get black, tarry stools or vomit up what looks like coffee grounds, call your doctor or health healthcare risk control consultant at once. You may have a bleeding ulcer. You have been given the following additional information: Dermatitis, Non-Specific Fexofenadine Hydrochloride Oral tablet Prednisone Oral tablet Cephalexin Monohydrate Oral tablet Famotidine Oral tablet (Electronically signed by Lakia Ellis A.R.N.P. 06/19/2016 22:17)
--- NOTE | 2016-06-19 22:17 | ED MED RECONCILIATION SUMMARY ---
Patient: CYDNEY BENAVIDES Medication Reconciliation Report [facility] VisitID: [id number] [address] [place] [address] 40y, F Registration Date/Time: 06/19/2016 Weight: 81.6 kg Height/Length: 63 in. BMI: 31.9 ALLERGIES: Sulfa Antibiotics The patient's Home Medications are listed below: THE FOLLOWING MEDICATIONS NEED TO BE RECONCILED: Albuterol Sulfate Inhalation The source(s) of the original Home Medication information: Not obtained. The following Medications were given to the patient in the Emergency Department: Pepcid [PO] PO 40 mg, administered: 06/19/2016 7:16:00 PM Prednisone [PO] PO 60 mg, administered: 06/19/2016 7:16:00 PM The following Medications were prescribed to the patient: Bella 180 mg tablets: take 1 orally daily for 10 days. Dispense ten (10). No refills. -- Lakia Ellis A.R.N.P. Prednisone 20 mg: take 3 orally every day for 5 days. Dispense fifteen (15). No refills. -- Lakia Ellis A.R.N.P. Keflex 500 mg: take 1 capsule orally every 12 hours for 10 days. No refill. -- Lakia Ellis A.R.N.P. Pepcid 40 mg RPD: take 1 orally at bedtime for 10 days. Dispense ten (10). No refills. -- Lakia Ellis A.R.N.P.
--- NOTE | 2016-06-19 22:17 | ED MED RECONCILIATION SUMMARY ---
Patient: CYDNEY BENAVIDES Medication Reconciliation Report [facility] VisitID: [id number] [address] [place] [address] 40y, F Registration Date/Time: 06/19/2016 Weight: 81.6 kg Height/Length: 63 in. BMI: 31.9 ALLERGIES: Sulfa Antibiotics The patient's Home Medications are listed below: THE FOLLOWING MEDICATIONS NEED TO BE RECONCILED: Albuterol Sulfate Inhalation The source(s) of the original Home Medication information: Not obtained. The following Medications were given to the patient in the Emergency Department: Pepcid [PO] PO 40 mg, administered: 06/19/2016 7:16:00 PM Prednisone [PO] PO 60 mg, administered: 06/19/2016 7:16:00 PM The following Medications were prescribed to the patient: Bella 180 mg tablets: take 1 orally daily for 10 days. Dispense ten (10). No refills. -- Lakia Ellis A.R.N.P. Prednisone 20 mg: take 3 orally every day for 5 days. Dispense fifteen (15). No refills. -- Lakia Ellis A.R.N.P. Keflex 500 mg: take 1 capsule orally every 12 hours for 10 days. No refill. -- Lakia Ellis A.R.N.P. Pepcid 40 mg RPD: take 1 orally at bedtime for 10 days. Dispense ten (10). No refills. -- Lakia Ellis A.R.N.P.
== END 2016-06-19 20:00 | disposition home or self-care (01) ==
LOC: ED SRH 17:25
DX: L24.5 Irritant contact dermatitis due to other chemical products (principal); K21.9 Gastro-esophageal reflux disease without esophagitis